=== PATIENT | female | born 1930 | race African-American/Black ===

== ENCOUNTER 2017-12-19 09:23 | Outpatient (CLI) | payer MEDICARE | END 2017-12-19 09:24 | disposition home or self-care (01) | LOC: BICRAD 09:23 | PROVIDERS: ATTEND Internal Medicine Hematology & Oncology | DX: C90.00 Multiple myeloma not having achieved remission (principal); M54.5 Low back pain; M47.896 Other spondylosis, lumbar region; I70.90 Unspecified atherosclerosis | CPT/HCPCS: 72100; 77075 ==

== ENCOUNTER 2018-04-16 17:31 | Emergency (ER) | payer MEDICARE ==
[2018-04-16] MEDS ORDERED: Meclizine HCl 25 MG TAB ONE (18:13)
[2018-04-16 18:20] LABS: #Eosinphils 0.1 thou/uL (0.0-0.7); #Monocytes 0.3 thou/uL (0.11-0.59); #Neutrophils 2.4 thou/uL (1.40-6.50); %Basophils 0.6 % (0.0-1.0); %Eosinophils 1.5 % (0.0-10.0); %Lymphocytes 42.4 % (21.0-51.0); %Monocytes 6.4 % (0.0-10.0); %Neutrophils 49.1 % (42.0-75.0); Hemoglobin 11.3 g/dL (12.0-16.0); Mean Corpuscular Hemoglobin 29.1 pg (27.0-31.0); Mean Corpuscular Volume 93.8 fL (78.0-98.0); Mean Platelet Volume 7.3 fL (7.4-10.4); Platelet Count 269 thou/uL (130-400); RBC Distribution Width 13.8 % (11.5-14.5); Red Blood Cell (RBC) Count 3.89 mill/uL (4.20-5.40); White Blood Cell (WBC) Count 4.8 thou/uL (4.8-10.8)
[2018-04-16 18:30] LABS: ALT (SGPT) 10 U/L (8-55); AST (SGOT) 18 U/L (5-34); Albumin 4.2 g/dL (3.4-4.8); Alkaline Phosphatase 60 U/L (40-150); Anion Gap 10 mmol/L (10-20); BUN (Urea Nitrogen) 15 mg/dL (9.8-20.1); Bilirubin, Total 0.6 mg/dL (0.2-1.2); Calc. Creatinine Clearance 0 mL/min (70-130); Calcium 10.2 mg/dL (7.8-10.44); Carbon Dioxide 31 mmol/L (23-31); Chloride 103 mmol/L (98-107); Estimated GFR-MDRD 76; Globulin 3.7 g/dL (2.4-3.5); Glucose 90 mg/dL (83-110); Potassium 3.4 mmol/L (3.5-5.1); Protein, Total 7.9 g/dL (6.0-8.3); Sodium 141 mmol/L (136-145)
[2018-04-16 18:31] LABS: CKMB 1.2 ng/mL (0-6.6); Troponin I Less than 0.010 ng/mL (< 0.028)
[2018-04-16 19:49] LABS: Bilirubin Negative (Negative); Blood, Urine Small (Negative); Clarity CLEAR (Clear); Glucose, Urine (Dipstick) Negative (Negative); Leukocyte Trace (Negative); Nitrite Negative (Negative); Protein, Urine (Dipstick) Negative (Neg-Trace); Specific Gravity, Urine 1.006 (1.002-1.036); Urobilinogen 0.2 mg/dL (0.2-1.0)
[2018-04-16 19:52] LABS: Bacteria/HPF None Seen HPF (None Seen); Hyaline Casts/LPF 0-3 HYALINE CAST LPF (0-3 Hyaline); RBC/HPF 0-3 HPF (0-3); Squamous Epithelial None Seen HPF (0-3); WBC/HPF 0-3 HPF (0-3)
--- NOTE | 2018-04-20 11:59 | EKG ---
Test Reason : Blood Pressure : / mmHG Vent. Rate : 078 BPM Atrial Rate : 078 BPM P-R Int : 128 ms QRS Dur : 080 ms QT Int : 376 ms P-R-T Axes : 060 -43 008 degrees QTc Int : 428 ms Normal sinus rhythm Left axis deviation Abnormal ECG Confirmed by ADAMS ROMERO ([id number]), fan mail editor [place] CLIFFORD ([id number]) on 04/20/2018 11:59:20 AM Referred By: Confirmed By:ADAMS ROMERO
== END 2018-04-16 20:38 | disposition home or self-care (01) ==
LOC: ERS 17:31
DX: R42 Dizziness and giddiness (principal); E78.5 Hyperlipidemia, unspecified; I10 Essential (primary) hypertension; Z79.899 Other long term (current) drug therapy; Z79.82 Long term (current) use of aspirin
CPT/HCPCS: 36415; 80053; 81003; 81015; 82553; 84484; 85025; 93005

== ENCOUNTER 2018-08-10 09:44 | Emergency (ER) | payer MEDICARE ==
[2018-08-10] MEDS ORDERED: ISOVUE-370 76%-LOCM 1 ML ONE (09:54)
[2018-08-10 10:52] LABS: #Lymphocytes 1.4 thou/uL (1.20-3.40); #Monocytes 0.3 thou/uL (0.11-0.59); #Neutrophils 2.2 thou/uL (1.40-6.50); %Eosinophils 0.9 % (0.0-10.0); %Lymphocytes 34.8 % (21.0-51.0); %Monocytes 6.6 % (0.0-10.0); %Neutrophils 56.6 % (42.0-75.0); Hemoglobin 11.8 g/dL (12.0-16.0); Mean Corpuscular HGB CONC 31.2 g/dL (32.0-36.0); Mean Platelet Volume 7.5 fL (7.4-10.4); Platelet Count 238 thou/uL (130-400); RBC Distribution Width 14.1 % (11.5-14.5); Red Blood Cell (RBC) Count 3.94 mill/uL (4.20-5.40); White Blood Cell (WBC) Count 3.9 thou/uL (4.8-10.8)
[2018-08-10 10:57] LABS: ALT (SGPT) 11 U/L (8-55); AST (SGOT) 23 U/L (5-34); Albumin 4.3 g/dL (3.4-4.8); Alkaline Phosphatase 63 U/L (40-150); Anion Gap 14 mmol/L (10-20); BUN (Urea Nitrogen) 12 mg/dL (9.8-20.1); Bilirubin, Total 1.1 mg/dL (0.2-1.2); Calc. Creatinine Clearance 0 mL/min (70-130); Calcium 10.7 mg/dL (7.8-10.44); Carbon Dioxide 29 mmol/L (23-31); Chloride 103 mmol/L (98-107); Estimated GFR-MDRD 76; Globulin 3.9 g/dL (2.4-3.5); Glucose 98 mg/dL (83-110); Lipase 19 U/L (8-78); Potassium 3.9 mmol/L (3.5-5.1); Protein, Total 8.2 g/dL (6.0-8.3); Sodium 142 mmol/L (136-145)
--- NOTE | 2018-08-10 11:52 | RAD ---
FRONTAL VIEW CHEST: Date: 08/10/18 COMPARISON: 01/31/13. INDICATION: Pain. FINDINGS: There is interstitial prominence of the lungs with hyperinflation. No lobar consolidation, effusion, or pneumothorax. Cardiac silhouette is stable. IMPRESSION: COPD. POS: [facility]
[2018-08-10 13:45] LABS: Troponin I Less than 0.010 ng/mL (< 0.028)
--- NOTE | 2018-08-10 14:33 | CT ---
CT ABDOMEN AND PELVIS WITH IV CONTRAST: Date: 08/10/18 HISTORY: Abdominal pain which began 4 days ago. COMPARISON: Noncontrast CT abdomen and pelvis dated 03/27/11. FINDINGS: There is mild bibasilar atelectasis and/or scarring present. A few subcentimeter too small to characterize hypodense lesions are seen within the right hepatic lob e with a slightly larger hypodense structure in the posterior aspect of posterior segment of right he patic lobe measuring 8.0 mm. This structure was present on prior noncontrast CT scan in 2010 and appe ars overall stable in size. The additional subcentimeter hypodense cystic structures in the medial as pect of posterior segment right hepatic lobe, as well as adjacent to the IVC are too small to further characterize. There are hypodense cystic appearing structures seen within the region of the uncinate process of the pancreas, as well as in the region of the neck of the pancreas, largest measuring 10.0 mm in uncinat e process, and 7.0 mm in the neck of the pancreas. These hypodense cystic lesions were present on rogers or CT scan examination in 2010 and are unchanged in size. The spleen, bilateral adrenal glands, kidneys, and distended urinary bladder demonstrate a normal CT appearance. The uterus is not visualized, likely related to prior hysterectomy. There is colonic diverticulosis present, predominantly involving the sigmoid colon. Small amount of free fluid is seen in the pelvis. There are multiple calcifications seen in the pelvis, likely related to phleboliths. Small amount of retained fecal material is seen throughout the colon. The appendix is not visualized, but there are no CT findings to suggest appendicitis. Loops of small bowel are normal in caliber. Mild vascular calcification seen in the infrarenal abdominal aorta and involving the iliac arteries. No fluid collection or lymphadenopathy seen in the abdomen or pelvis. Mild degenerative changes are seen in the spine. There is a prominent hemangioma present within the L 3 vertebral body. IMPRESSION: 1. Small amount of free fluid in the pelvis. 2. Stable hypodense lesion posterior segment right hepatic lobe with additional subcentimeter hypode nse lesions also seen within the liver, which are too small to further characterize. Larger hypodense lesion is stable in size compared to a study in 2011. 3. Stable pancreatic cystic lesions compared to study in 2011. 4. Evidence of hysterectomy. 5. Colonic diverticulosis. There is a calcific appearing density seen in the region of the rectum wi th surrounding fat density area. This may represent ingested material within the bowel lumen. 6. Tiny, fat-containing umbilical hernia. POS: [facility]
== END 2018-08-10 14:30 | disposition home or self-care (01) ==
LOC: ERS 09:44
DX: R10.11 Right upper quadrant pain (principal); R10.12 Left upper quadrant pain; I10 Essential (primary) hypertension; E78.5 Hyperlipidemia, unspecified; Z79.899 Other long term (current) drug therapy; Z79.82 Long term (current) use of aspirin
CPT/HCPCS: 36415; 71045; 74177; 80053; 83690; 84484; 85025; 93005; Q9966

== ENCOUNTER 2018-10-25 16:10 | Outpatient (CLI) | payer MEDICARE ==
--- NOTE | 2018-10-25 16:46 | RAD ---
Skeletal bone survey. HISTORY: Multiple myeloma. AP and lateral view cervical, thoracic, lumbar spine as well as AP view right and left upper extremit y as well as AP view right and left lower extremity and lateral view skull obtained. Multilevel changes of spondylosis seen in the cervical spine. No evidence of osseous lytic lesions seen. No evidence of calvarial lesions seen. IMPRESSION: No evidence of lytic osseous lesions seen on skeletal survey. Transcribed Date/Time: 10/25/2018 6:31 PM
== END 2018-10-25 16:11 | disposition home or self-care (01) ==
LOC: BICRAD 16:10
PROVIDERS: ATTEND Internal Medicine Hematology & Oncology
DX: C90.00 Multiple myeloma not having achieved remission (principal)
CPT/HCPCS: 77075

== ENCOUNTER 2018-12-08 00:17 | Emergency (ER) | payer MEDICARE ==
--- NOTE | 2018-12-08 08:30 | RAD ---
LEFT ANKLE THREE VIEWS: HISTORY: Left ankle and foot pain. COMPARISON: None. FINDINGS: Three views of the left ankle show no evidence of acute fracture or dislocation. Moderate diffuse so ft tissue swelling is seen, which is slightly more prominent laterally. No degenerative changes are seen. IMPRESSION: No evidence of acute osseous abnormality. POS: [facility]
== END 2018-12-08 04:03 | disposition home or self-care (01) ==
LOC: ERS 00:17
DX: S86.012A Strain of left Achilles tendon, initial encounter (principal); E78.5 Hyperlipidemia, unspecified; I10 Essential (primary) hypertension; Z79.899 Other long term (current) drug therapy; Z79.82 Long term (current) use of aspirin; X58.XXXA Exposure to other specified factors, initial encounter

== ENCOUNTER 2019-02-13 10:04 | Outpatient (CLI) | payer MEDICARE ==
--- NOTE | 2019-02-13 11:13 | MMO ---
Bilateral MAMMO Bilat Screen [facility]. CLINICAL HISTORY: Patient is 88 years old and is seen for screening. The patient has no family history of breast cancer. The patient has no personal history of cancer. VIEWS: The views performed were: bilateral craniocaudal with tomosynthesis and bilateral mediolateral oblique with tomosynthesis. FILMS COMPARED: The present examination has been compared to prior imaging studies performed at [facility] on 02/04/2015, 02/09/2016, 02/09/2017 and 02/11/2018. MAMMOGRAM FINDINGS: There are scattered fibroglandular densities. Finding 1: There are stable benign appearing calcifications seen in both breasts. Finding 2: There is a stable nodule seen in the posterior inner region of the right breast. There are no suspicious masses, suspicious calcifications, or new areas of architectural distortion. IMPRESSION: THERE IS NO MAMMOGRAPHIC EVIDENCE OF MALIGNANCY. A ROUTINE FOLLOW-UP MAMMOGRAM IN 1 YEAR IS RECOMMENDED. THE RESULTS OF THIS EXAM WERE SENT TO THE PATIENT. ACR BI-RADS Category 2 - Benign finding MAMMOGRAPHY NOTE: 1. A negative mammogram report should not delay a biopsy if a dominant of clinically suspicious mass is present. 2. Approximately 10% to 15% of breast cancers are not detected by mammography. 3. Adenosis and dense breasts may obscure an underlying neoplasm. Reported by: SANTI EASTON MD Electonically Signed: [id number]
== END 2019-02-13 10:05 | disposition home or self-care (01) ==
LOC: BICMAMMO 10:04
PROVIDERS: ATTEND Internal Medicine
DX: Z12.31 Encounter for screening mammogram for malignant neoplasm of breast (principal)
CPT/HCPCS: 77063; 77067

== ENCOUNTER 2019-05-21 13:07 | Emergency (ER) | payer MEDICARE | END 2019-05-21 14:06 | disposition home or self-care (01) | LOC: ERS 13:07 | DX: K13.70 Unspecified lesions of oral mucosa (principal); E78.5 Hyperlipidemia, unspecified; I10 Essential (primary) hypertension; Z79.899 Other long term (current) drug therapy | CPT/HCPCS: 99282 ==

== ENCOUNTER 2019-06-27 09:33 | Emergency (ER) | payer MEDICARE ==
[2019-06-27 10:40] LABS: #Lymphocytes 1.2 thou/uL (1.20-3.40); #Monocytes 0.3 thou/uL (0.11-0.59); %Basophils 1.1 % (0.0-1.0); %Monocytes 5.7 % (0.0-10.0); %Neutrophils 65.2 % (42.0-75.0); Hemoglobin 11.8 g/dL (12.0-16.0); Mean Corpuscular HGB CONC 31.3 g/dL (32.0-36.0); Mean Corpuscular Hemoglobin 28.8 pg (27.0-31.0); Mean Corpuscular Volume 92.1 fL (78.0-98.0); Mean Platelet Volume 7.6 fL (7.4-10.4); Platelet Count 225 thou/uL (130-400); RBC Distribution Width 14.3 % (11.5-14.5); White Blood Cell (WBC) Count 4.5 thou/uL (4.8-10.8)
[2019-06-27 10:42] LABS: Bacteria/HPF None Seen HPF (None Seen); Bilirubin Negative (Negative); Blood, Urine Trace (Negative); Clarity Clear (Clear); Glucose, Urine (Dipstick) Normal (Negative); Leukocyte 25 Leu/uL (Negative); Nitrite Negative (Negative); Protein, Urine (Dipstick) Negative (Neg-Trace); Squamous Epithelial 0-3 HPF (0-3); Urobilinogen Normal mg/dL (Less than 2); WBC/HPF 0-3 HPF (0-3)
[2019-06-27 11:02] LABS: ALT (SGPT) 10 U/L (8-55); AST (SGOT) 16 U/L (5-34); Albumin 4.3 g/dL (3.4-4.8); Alkaline Phosphatase 78 U/L (40-110); Anion Gap 10 mmol/L (10-20); BUN (Urea Nitrogen) 11 mg/dL (9.8-20.1); Bilirubin, Total 0.8 mg/dL (0.2-1.2); Calc. Creatinine Clearance 0 mL/min (70-130); Calcium 10.5 mg/dL (7.8-10.44); Carbon Dioxide 32 mmol/L (23-31); Chloride 103 mmol/L (98-107); Estimated GFR-MDRD 75; Globulin 3.9 g/dL (2.4-3.5); Glucose 96 mg/dL (83-110); Lipase 19 U/L (8-78); Potassium 3.5 mmol/L (3.5-5.1); Protein, Total 8.2 g/dL (6.0-8.3); Sodium 141 mmol/L (136-145)
== END 2019-06-27 11:45 | disposition home or self-care (01) ==
LOC: ERS 09:33
DX: R42 Dizziness and giddiness (principal); E78.5 Hyperlipidemia, unspecified; E78.00 Pure hypercholesterolemia, unspecified; I10 Essential (primary) hypertension; Z79.899 Other long term (current) drug therapy; Z79.82 Long term (current) use of aspirin
CPT/HCPCS: 80053; 81003; 81015; 83690; 85025; 93005; 96360

== ENCOUNTER 2019-08-04 02:21 | Emergency (ER) | payer MEDICARE | END 2019-08-04 03:04 | disposition home or self-care (01) | LOC: ERS 02:21 | DX: K59.00 Constipation, unspecified (principal); E78.5 Hyperlipidemia, unspecified; E78.00 Pure hypercholesterolemia, unspecified; I10 Essential (primary) hypertension; Z79.82 Long term (current) use of aspirin; Z79.899 Other long term (current) drug therapy | CPT/HCPCS: 36415; 80053; 82248; 83615; 83883; 84100; 84550; 99281 ==

== ENCOUNTER 2019-08-07 03:05 | Emergency (ER) | payer MEDICARE ==
[2019-08-07] MEDS ORDERED: Magnesium Citrate 300 ML BOT ONE (03:13)
== END 2019-08-07 03:43 | disposition home or self-care (01) ==
LOC: ERS 03:05
DX: K59.00 Constipation, unspecified (principal); Z79.899 Other long term (current) drug therapy; Z79.82 Long term (current) use of aspirin
CPT/HCPCS: 99281

== ENCOUNTER 2019-08-09 08:39 | Emergency (ER) | payer MEDICARE ==
[2019-08-09 09:39] LABS: #Lymphocytes 1.4 thou/uL (1.20-3.40); #Monocytes 0.2 thou/uL (0.11-0.59); #Neutrophils 2.6 thou/uL (1.40-6.50); %Basophils 0.6 % (0.0-1.0); %Eosinophils 0.9 % (0.0-10.0); %Lymphocytes 33.1 % (21.0-51.0); %Monocytes 4.8 % (0.0-10.0); %Neutrophils 60.6 % (42.0-75.0); Mean Corpuscular HGB CONC 33.5 g/dL (32.0-36.0); Mean Corpuscular Hemoglobin 31.5 pg (27.0-31.0); Mean Corpuscular Volume 94.1 fL (78.0-98.0); Mean Platelet Volume 7.3 fL (7.4-10.4); Platelet Count 259 thou/uL (130-400); RBC Distribution Width 14.1 % (11.5-14.5); Red Blood Cell (RBC) Count 4.12 mill/uL (4.20-5.40); White Blood Cell (WBC) Count 4.4 thou/uL (4.8-10.8)
--- NOTE | 2019-08-09 09:51 | CT ---
CT Abdomen Pelvis W Con: 08/09/2019 9:14 AM CLINICAL INFORMATION: Abdominal pain for one week COMPARISON: 08/10/2018 TECHNIQUE: Multiple contiguous axial images were obtained and a CT of the abdomen and pelvis with IV contrast. C oronal and sagittal reformats were performed. FINDINGS: Lower Chest: within normal limits. Abdomen: Liver: Stable subcentimeter hypodensity in the right lobe the liver is too small to definitely charac terize. Bile Ducts: Normal caliber. Gallbladder: No calcified gallstones. Normal caliber wall. Pancreas: There is a well circumscribed 10 mm low-density lesion in the pancreatic head with a depend ent 3 mm calcification. Spleen: within normal limits. Adrenals: within normal limits. Kidneys: within normal limits. Pelvis: Reproductive Organs: Status post hysterectomy. A stable 2.4 cm low-density lesion in the posterior ri ght pelvis contains a dependent calcification is again seen Ureters: within normal limits. Bladder: within normal limits. Peritoneum: Multiple phleboliths are seen in the pelvis. No free air or free fluid are seen in the ab domen or pelvis. Bowel: Normal caliber. Scattered diverticula in the colon. Mesentery and Retroperitoneum: No enlarged mesenteric or retroperitoneal lymph nodes. Vessels: Atherosclerotic calcifications. Abdominal Wall: within normal limits. Bones: Degenerative changes in the spine. IMPRESSION: 1. No evidence of acute intraabdominal or pelvic abnormality. 2. Diverticulosis 3. Stable is stable pancreatic hypodensity. However, on today's examination, there is now a dependent calcification within this hypodensity which likely represents a cyst. 4. Likely small right hepatic cyst
[2019-08-09 10:01] LABS: ALT (SGPT) 11 U/L (8-55); AST (SGOT) 18 U/L (5-34); Albumin 4.4 g/dL (3.4-4.8); Alkaline Phosphatase 75 U/L (40-110); Anion Gap 11 mmol/L (10-20); BUN (Urea Nitrogen) 13 mg/dL (9.8-20.1); Bilirubin, Total 0.8 mg/dL (0.2-1.2); Calc. Creatinine Clearance 0 mL/min (70-130); Calcium 10.7 mg/dL (7.8-10.44); Carbon Dioxide 33 mmol/L (23-31); Chloride 103 mmol/L (98-107); Estimated GFR-MDRD 73; Globulin 3.9 g/dL (2.4-3.5); Glucose 100 mg/dL (83-110); Lipase 26 U/L (8-78); Potassium 3.8 mmol/L (3.5-5.1); Protein, Total 8.3 g/dL (6.0-8.3); Sodium 143 mmol/L (136-145)
[2019-08-09] MEDS ORDERED: Iopamidol-370 76% 500 ML 1 ML ONE (11:46)
== END 2019-08-09 10:29 | disposition home or self-care (01) ==
LOC: ERS 08:39
DX: R10.13 Epigastric pain (principal); E78.5 Hyperlipidemia, unspecified; E78.00 Pure hypercholesterolemia, unspecified; I10 Essential (primary) hypertension
CPT/HCPCS: 74177; 80053; 83690; 84484; 85025; 93005; Q9967

== ENCOUNTER 2019-11-12 10:05 | Outpatient (CLI) | payer MEDICARE ==
--- NOTE | 2019-11-12 11:08 | RAD ---
RADIOGRAPH SKELETAL SURVEY 18 VIEWS: Skull one view lateral C-spine 2 views Thoracic spine 2 view Lumbosacral spine 2 views Bilateral humerus 1 view each Bilateral forearms 1 view each Pelvis one view Bilateral femur 1 view each Bilateral knees one view each Bilateral legs tibia-fibula 1 view each HISTORY: 89-year-old female with multiple myeloma. FINDINGS: Diffuse mild osteopenia not unusual for age. No definite discrete suspicious osteolytic lesion identi fied. No thoracic or lumbar vertebral body collapse. Multilevel high-grade degenerative disc disease and facet DJD in the cervical spine. Several levels of mild and moderate degenerative disc di sease in mid thoracic spine. No pathologic fracture. IMPRESSION: 1. No plain radiographic manifestation of multiple myeloma identified. 2. High-grade cervical spondylosis.
== END 2019-11-12 10:06 | disposition home or self-care (01) ==
LOC: BICRAD 10:05
PROVIDERS: ATTEND Internal Medicine Hematology & Oncology
DX: C90.00 Multiple myeloma not having achieved remission (principal); M47.812 Spondylosis without myelopathy or radiculopathy, cervical region
CPT/HCPCS: 77075; 80053; 82248; 83615; 83883; 84100; 84550

== ENCOUNTER 2020-07-09 15:31 | Emergency (ER) | payer MEDICARE ==
--- NOTE | 2020-07-09 16:06 | RAD ---
EXAM: CHEST ONE VIEW HISTORY: Headache, dizziness, epigastric abdominal pain. COMPARISON: 08/10/2018 FINDINGS: The cardiac silhouette and pulmonary vasculature are within normal limits. The lungs are clear. Calci fied right hilar/paramediastinal lymph nodes are again noted. Chest is stable compared to prior study. IMPRESSION: No acute cardiopulmonary process.
[2020-07-09 16:36] LABS: #Lymphocytes 1.6 thou/uL (1.20-3.40); #Monocytes 0.2 thou/uL (0.11-0.59); #Neutrophils 4.2 thou/uL (1.40-6.50); %Basophils 0.2 % (0.0-1.0); %Eosinophils 0.5 % (0.0-10.0); %Lymphocytes 26.6 % (21.0-51.0); %Monocytes 3.7 % (0.0-10.0); Hemoglobin 12.3 g/dL (12.0-16.0); Mean Corpuscular HGB CONC 32.4 g/dL (32.0-36.0); Mean Corpuscular Hemoglobin 30.4 pg (27.0-31.0); Mean Corpuscular Volume 93.7 fL (78.0-98.0); Mean Platelet Volume 7.5 fL (7.4-10.4); Platelet Count 234 thou/uL (130-400); RBC Distribution Width 14.1 % (11.5-14.5); Red Blood Cell (RBC) Count 4.04 mill/uL (4.20-5.40); White Blood Cell (WBC) Count 6.1 thou/uL (4.8-10.8)
[2020-07-09 17:06] LABS: ALT (SGPT) 14 U/L (8-55); AST (SGOT) 24 U/L (5-34); Albumin 4.3 g/dL (3.4-4.8); Alkaline Phosphatase 74 U/L (40-110); Anion Gap 13 mmol/L (10-20); BUN (Urea Nitrogen) 11 mg/dL (9.8-20.1); Bilirubin, Total 0.8 mg/dL (0.2-1.2); CK (CPK) 293 U/L (29-168); Calc. Creatinine Clearance 0 mL/min (70-130); Calcium 10.2 mg/dL (7.8-10.44); Carbon Dioxide 30 mmol/L (23-31); Chloride 103 mmol/L (98-107); Globulin 3.5 g/dL (2.4-3.5); Glucose 138 mg/dL (83-110); Lipase 34 U/L (8-78); Potassium 3.6 mmol/L (3.5-5.1); Protein, Total 7.8 g/dL (6.0-8.3); Sodium 142 mmol/L (136-145)
--- NOTE | 2020-07-09 17:35 | CT ---
CT BRAIN WITHOUT CONTRAST: HISTORY: Headache, lightheadedness COMPARISON: 08/29/2014 FINDINGS: There is cortical atrophy. 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 No evidence of a cute infarct, hemorrhage, midline shift or abnormal extra-axial fluid collections is seen. The ventricular size is appropriate and the basilar cisterns are patent. The bony calvarium is intact. Th e mastoid air cells are well aerated. There is mild mucosal disease in the paranasal sinuses. IMPRESSION: No CT evidence of acute intracranial process.
[2020-07-09 18:37] LABS: Bacteria/HPF None Seen HPF (None Seen); Bilirubin Negative (Negative); Blood, Urine Trace (Negative); Clarity Clear (Clear); Glucose, Urine (Dipstick) Normal (Negative); Ketone, Urine Negative (Negative); Leukocyte 25 Leu/uL (Negative); Nitrite Negative (Negative); Protein, Urine (Dipstick) Negative (Neg-Trace); RBC/HPF 0-3 HPF (0-3); Specific Gravity, Urine 1.005 (1.002-1.036); Squamous Epithelial 0-3 HPF (0-3); Urobilinogen Normal mg/dL (Less than 2); WBC/HPF 0-3 HPF (0-3); pH, Urine 6.5 (5.0-9.0)
== END 2020-07-09 19:49 | disposition home or self-care (01) ==
LOC: ERS 15:31
DX: R10.13 Epigastric pain (principal); R51.9 Headache, unspecified; E78.5 Hyperlipidemia, unspecified; E78.00 Pure hypercholesterolemia, unspecified; I10 Essential (primary) hypertension
CPT/HCPCS: 36415; 70450; 71045; 80053; 81003; 81015; 82550; 83690; 84484; 85025; 93005

== ENCOUNTER 2020-08-28 13:46 | Emergency (ER) | payer MEDICARE ==
[2020-08-28 14:28] LABS: #Lymphocytes 1.2 thou/uL (1.20-3.40); #Monocytes 0.2 thou/uL (0.11-0.59); #Neutrophils 3.3 thou/uL (1.40-6.50); %Basophils 0.4 % (0.0-1.0); %Eosinophils 0.6 % (0.0-10.0); %Lymphocytes 25.9 % (21.0-51.0); %Monocytes 3.4 % (0.0-10.0); %Neutrophils 69.6 % (42.0-75.0); Hemoglobin 11.8 g/dL (12.0-16.0); Mean Corpuscular HGB CONC 33.7 g/dL (32.0-36.0); Mean Corpuscular Hemoglobin 32.3 pg (27.0-31.0); Mean Platelet Volume 7.5 fL (7.4-10.4); Platelet Count 246 thou/uL (130-400); RBC Distribution Width 13.6 % (11.5-14.5); Red Blood Cell (RBC) Count 3.65 mill/uL (4.20-5.40); White Blood Cell (WBC) Count 4.8 thou/uL (4.8-10.8)
[2020-08-28 14:51] LABS: ALT (SGPT) 12 U/L (8-55); AST (SGOT) 19 U/L (5-34); Alkaline Phosphatase 63 U/L (40-110); Anion Gap 13 mmol/L (10-20); BUN (Urea Nitrogen) 12 mg/dL (9.8-20.1); Bilirubin, Total 0.8 mg/dL (0.2-1.2); Calc. Creatinine Clearance 0 mL/min (70-130); Calcium 9.7 mg/dL (7.8-10.44); Carbon Dioxide 27 mmol/L (23-31); Chloride 105 mmol/L (98-107); Globulin 3.7 g/dL (2.4-3.5); Glucose 102 mg/dL (83-110); Potassium 3.9 mmol/L (3.5-5.1); Protein, Total 7.7 g/dL (5.8-8.1); Sodium 141 mmol/L (136-145)
== END 2020-08-28 16:00 | disposition home or self-care (01) ==
LOC: ERS 13:46
DX: I10 Essential (primary) hypertension (principal); R42 Dizziness and giddiness; E78.5 Hyperlipidemia, unspecified; E78.00 Pure hypercholesterolemia, unspecified; Z79.891 Long term (current) use of opiate analgesic; Z79.899 Other long term (current) drug therapy; Z79.82 Long term (current) use of aspirin; Z85.830 Personal history of malignant neoplasm of bone; Z85.79 Personal history of other malignant neoplasms of lymphoid, hematopoietic and related tissues
CPT/HCPCS: 36415; 70450; 80053; 84484; 85025; 93005

== ENCOUNTER 2020-11-15 10:25 | Outpatient (CLI) | payer MEDICARE | END 2020-11-15 10:26 | disposition home or self-care (01) | LOC: BICRAD 10:25 | PROVIDERS: ATTEND Internal Medicine Hematology & Oncology | DX: C90.00 Multiple myeloma not having achieved remission (principal) | CPT/HCPCS: 77075 ==

== ENCOUNTER 2020-11-18 12:06 | Outpatient (CLI) | payer MEDICARE ==
[2020-11-19 03:29] LABS: SARS-CoV-2 NAA Rapid Test Not Detected (NotDetected)
== END 2020-11-18 12:07 | disposition home or self-care (01) ==
LOC: LABBT 12:06
PROVIDERS: ATTEND Internal Medicine Gastroenterology
DX: Z01.812 Encounter for preprocedural laboratory examination (principal); Z20.822 Contact with and (suspected) exposure to COVID-19
CPT/HCPCS: U0003; U0005; 87635; U0002

== ENCOUNTER 2021-01-25 11:23 | Outpatient (CLI) | payer MEDICARE | END 2021-01-25 11:24 | disposition home or self-care (01) | LOC: BICRAD 11:23 | PROVIDERS: ATTEND Neurological Surgery | DX: S22.008A Other fracture of unspecified thoracic vertebra, initial encounter for closed fracture (principal); M47.816 Spondylosis without myelopathy or radiculopathy, lumbar region | CPT/HCPCS: 72100 ==

== ENCOUNTER 2021-02-10 | Outpatient (CLI) | payer MEDICARE | END 2021-02-10 10:31 | disposition home or self-care (01) ==

== ENCOUNTER 2021-03-02 10:11 | Outpatient (CLI) | payer MEDICARE | END 2021-03-02 10:12 | disposition home or self-care (01) | LOC: BICRAD 10:11 | PROVIDERS: ATTEND Neurological Surgery | DX: S32.029D Unspecified fracture of second lumbar vertebra, subsequent encounter for fracture with routine healing (principal) | CPT/HCPCS: 72100 ==

== ENCOUNTER 2021-03-14 11:15 | Outpatient (CLI) | payer MEDICARE | END 2021-03-14 11:16 | disposition home or self-care (01) | LOC: BICMAMMO 11:15 | PROVIDERS: ATTEND Internal Medicine | DX: Z12.31 Encounter for screening mammogram for malignant neoplasm of breast (principal) | CPT/HCPCS: 77063; 77067 ==

== ENCOUNTER 2021-03-18 00:56 | Emergency (ER) | payer MEDICARE ==
[2021-03-18 02:22] LABS: Albumin 3.8 g/dL (3.4-4.8)
[2021-03-18 02:24] LABS: Calcium 9.9 mg/dL (7.8-10.44); Chloride 105 mmol/L (98-107); Potassium 3.9 mmol/L (3.5-5.1); Sodium 139 mmol/L (136-145)
[2021-03-18 02:25] LABS: Globulin 3.4 g/dL (2.4-3.5); Glucose 111 mg/dL (83-110); Protein, Total 7.2 g/dL (5.8-8.1)
[2021-03-18 02:26] LABS: Anion Gap 11 mmol/L (10-20); Carbon Dioxide 27 mmol/L (23-31)
[2021-03-18 02:27] LABS: Bilirubin, Total 0.7 mg/dL (0.2-1.2)
[2021-03-18 02:28] LABS: Alkaline Phosphatase 69 U/L (40-110); Calc. Creatinine Clearance 0 mL/min (70-130)
[2021-03-18 02:29] LABS: BUN (Urea Nitrogen) 19 mg/dL (9.8-20.1)
[2021-03-18 02:30] LABS: AST (SGOT) 19 U/L (5-34)
[2021-03-18 02:31] LABS: ALT (SGPT) 14 U/L (8-55); Lipase 43 U/L (8-78)
[2021-03-18 03:10] LABS: #Eosinphils 0.1 thou/uL (0.0-0.7); #Lymphocytes 1.7 thou/uL (1.20-3.40); #Monocytes 0.4 thou/uL (0.11-0.59); #Neutrophils 2.8 thou/uL (1.40-6.50); %Basophils 0.3 % (0.0-1.0); %Eosinophils 1.4 % (0.0-10.0); %Lymphocytes 34.8 % (21.0-51.0); %Neutrophils 56.6 % (42.0-75.0); Hemoglobin 10.6 g/dL (12.0-16.0); Mean Corpuscular HGB CONC 31.2 g/dL (32.0-36.0); Mean Corpuscular Hemoglobin 30.1 pg (27.0-31.0); Mean Corpuscular Volume 96.5 fL (78.0-98.0); Mean Platelet Volume 7.5 fL (7.4-10.4); Platelet Count 238 thou/uL (130-400); RBC Distribution Width 14.4 % (11.5-14.5); Red Blood Cell (RBC) Count 3.52 mill/uL (4.20-5.40)
== END 2021-03-18 03:37 | disposition home or self-care (01) ==
LOC: ERS 00:56
DX: I10 Essential (primary) hypertension (principal); E78.5 Hyperlipidemia, unspecified; E78.00 Pure hypercholesterolemia, unspecified; Z85.830 Personal history of malignant neoplasm of bone; Z85.79 Personal history of other malignant neoplasms of lymphoid, hematopoietic and related tissues
CPT/HCPCS: 36415; 80053; 83690; 84484; 85025; 93005

== ENCOUNTER 2021-04-23 17:30 | Emergency (ER) | payer MEDICARE ==
[2021-04-23 18:21] LABS: #Eosinphils 0.1 thou/uL (0.0-0.7); #Lymphocytes 1.8 thou/uL (1.20-3.40); #Monocytes 0.4 thou/uL (0.11-0.59); #Neutrophils 3.7 thou/uL (1.40-6.50); %Basophils 0.2 % (0.0-1.0); %Eosinophils 2.4 % (0.0-10.0); %Lymphocytes 30.1 % (21.0-51.0); %Monocytes 6.2 % (0.0-10.0); %Neutrophils 61.1 % (42.0-75.0); Mean Corpuscular HGB CONC 33.7 g/dL (32.0-36.0); Mean Corpuscular Hemoglobin 32.3 pg (27.0-31.0); Mean Platelet Volume 7.4 fL (7.4-10.4); Platelet Count 222 thou/uL (130-400); RBC Distribution Width 14.1 % (11.5-14.5); White Blood Cell (WBC) Count 6.1 thou/uL (4.8-10.8)
[2021-04-23] MEDS ORDERED: Ondansetron PF 4 MG/2 ML Vial ONE (18:26)
[2021-04-23 18:39] LABS: ALT (SGPT) 13 U/L (8-55); AST (SGOT) 18 U/L (5-34); Albumin 3.9 g/dL (3.4-4.8); Alkaline Phosphatase 57 U/L (40-110); Anion Gap 15 mmol/L (10-20); BUN (Urea Nitrogen) 13 mg/dL (9.8-20.1); Bilirubin, Total 0.9 mg/dL (0.2-1.2); Calc. Creatinine Clearance 0 mL/min (70-130); Carbon Dioxide 25 mmol/L (23-31); Chloride 106 mmol/L (98-107); Globulin 3.5 g/dL (2.4-3.5); Glucose 87 mg/dL (83-110); Protein, Total 7.4 g/dL (5.8-8.1); Sodium 142 mmol/L (136-145)
[2021-04-23 20:10] LABS: Bacteria/HPF None Seen HPF (None Seen); Bilirubin Negative (Negative); Blood, Urine Negative (Negative); Clarity Clear (Clear); Glucose, Urine (Dipstick) Normal (Negative); Ketone, Urine Negative (Negative); Leukocyte 25 Leu/uL (Negative); Nitrite Negative (Negative); Protein, Urine (Dipstick) Negative (Neg-Trace); RBC/HPF 0-3 HPF (0-3); Specific Gravity, Urine 1.006 (1.002-1.036); Squamous Epithelial 0-3 HPF (0-3); Urobilinogen Normal mg/dL (Less than 2); WBC/HPF 0-3 HPF (0-3)
== END 2021-04-23 20:40 | disposition home or self-care (01) ==
LOC: ERS 17:30
DX: I10 Essential (primary) hypertension (principal); E78.5 Hyperlipidemia, unspecified
CPT/HCPCS: 36415; 70450; 71045; 80053; 81003; 81015; 84484; 85025; 87086; 93005; 96374; J2405

== ENCOUNTER 2021-04-27 09:38 | Outpatient (CLI) | payer MEDICARE | END 2021-04-27 09:39 | disposition home or self-care (01) | LOC: BICMRI 09:38 | PROVIDERS: ATTEND Internal Medicine | DX: M54.41 Lumbago with sciatica, right side (principal); M54.42 Lumbago with sciatica, left side; M47.816 Spondylosis without myelopathy or radiculopathy, lumbar region; S32.021A Stable burst fracture of second lumbar vertebra, initial encounter for closed fracture | CPT/HCPCS: 72148 ==

== ENCOUNTER 2021-07-15 14:03 | Outpatient (CLI) | payer MEDICARE | END 2021-07-15 14:04 | disposition home or self-care (01) | LOC: RAD 14:03 | PROVIDERS: ATTEND Nurse Practitioner Family | DX: S32.029A Unspecified fracture of second lumbar vertebra, initial encounter for closed fracture (principal); M43.9 Deforming dorsopathy, unspecified | CPT/HCPCS: 72100 ==

== ENCOUNTER 2021-11-08 10:53 | Outpatient (CLI) | payer MEDICARE | END 2021-11-08 10:54 | disposition home or self-care (01) | LOC: BICRAD 10:53 | PROVIDERS: ATTEND Internal Medicine Hematology & Oncology | DX: C90.00 Multiple myeloma not having achieved remission (principal) | CPT/HCPCS: 77075 ==

== ENCOUNTER 2021-11-14 09:45 | Outpatient (CLI) | payer MEDICARE ==
[2021-11-14] MEDS ORDERED: Magnevist 469MG/ML 20 ML VIAL ONE ×2 (15:07)
== END 2021-11-14 09:46 | disposition home or self-care (01) ==
LOC: MRI 09:45
PROVIDERS: ATTEND Internal Medicine Hematology & Oncology
DX: M54.50 Low back pain, unspecified (principal); C90.00 Multiple myeloma not having achieved remission
CPT/HCPCS: 72157; 72158; A9579

== ENCOUNTER 2021-11-25 12:53 | Outpatient (CLI) | payer MEDICARE | END 2021-11-25 12:54 | disposition home or self-care (01) | LOC: LABBT 12:53 | PROVIDERS: ATTEND Internal Medicine Hematology & Oncology | DX: Z20.822 Contact with and (suspected) exposure to COVID-19 (principal) | CPT/HCPCS: U0003; U0005 ==

== ENCOUNTER 2021-11-29 09:13 | Day surgery (SDC) | payer MEDICARE ==
[2021-11-24 10:54] VITALS: BMI 23.3
[2021-11-29 09:51] LABS: Prothrombin Time 12.9 sec (12.0-14.7)
[2021-11-29 09:54] LABS: PTT 21.1 sec (22.9-36.1)
[2021-11-29 10:40] VITALS: BP 165/88; TEMP 99.3
== END 2021-11-29 10:30 | disposition home or self-care (01) ==
LOC: CT 09:13
PROVIDERS: ATTEND Internal Medicine Hematology & Oncology
DX: C90.00 Multiple myeloma not having achieved remission (principal); Z53.09 Procedure and treatment not carried out because of other contraindication; I10 Essential (primary) hypertension; E78.5 Hyperlipidemia, unspecified; Z86.73 Personal history of transient ischemic attack (TIA), and cerebral infarction without residual deficits
CPT/HCPCS: 36415; 85610; 85730

== ENCOUNTER 2021-12-12 09:52 | Outpatient (CLI) | payer MEDICARE | END 2021-12-12 09:53 | disposition home or self-care (01) | LOC: LABBT 09:52 | PROVIDERS: ATTEND Internal Medicine Hematology & Oncology | DX: Z20.822 Contact with and (suspected) exposure to COVID-19 (principal) | CPT/HCPCS: U0003; U0005 ==

== ENCOUNTER 2021-12-15 08:58 | Day surgery (SDC) | payer MEDICARE ==
[2021-12-14 16:06] VITALS: BMI 24.3
[2021-12-15 13:17] VITALS: BP 166/80; TEMP 98.8
== END 2021-12-15 11:30 | disposition home or self-care (01) ==
LOC: CT 08:58
PROVIDERS: ATTEND Internal Medicine Hematology & Oncology
PROC: 07DR3ZX Extraction of Iliac Bone Marrow, Percutaneous Approach, Diagnostic (ICD-10-PCS; principal; 2021-12-15)
DX: C90.00 Multiple myeloma not having achieved remission (principal); I10 Essential (primary) hypertension; E78.5 Hyperlipidemia, unspecified; Z79.82 Long term (current) use of aspirin; Z79.899 Other long term (current) drug therapy
CPT/HCPCS: 20225; 77012; 88184; 88237; 88264; 88280

== ENCOUNTER 2022-03-16 09:36 | Outpatient (CLI) | payer MEDICARE | END 2022-03-16 09:37 | disposition home or self-care (01) | LOC: BICMAMMO 09:36 | PROVIDERS: ATTEND Family Medicine | DX: Z12.31 Encounter for screening mammogram for malignant neoplasm of breast (principal); M85.89 Other specified disorders of bone density and structure, multiple sites | CPT/HCPCS: 77063; 77067 ==

== ENCOUNTER 2022-09-19 13:58 | Outpatient (CLI) | payer MEDICARE | END 2022-09-19 13:59 | disposition home or self-care (01) | LOC: BICRAD 13:58 | PROVIDERS: ATTEND Internal Medicine Rheumatology | DX: M25.511 Pain in right shoulder (principal); M25.512 Pain in left shoulder; M54.2 Cervicalgia; M47.812 Spondylosis without myelopathy or radiculopathy, cervical region; R29.890 Loss of height; Z85.79 Personal history of other malignant neoplasms of lymphoid, hematopoietic and related tissues | CPT/HCPCS: 72040 ==